=== PATIENT | male | born 2000 | race American Indian/Alaskan Native ===

== ENCOUNTER 2021-07-04 04:39 | Emergency (ER) | payer MEDICAID ==
[2021-07-04 05:42] LABS: Bilirubin,Urine NEG (Negative); Blood,Urine NEG (Negative); Color,Urine Yellow (Yellow); Mucus,Urine FEW /HPF; Protein,Urine <15 mg/dL mg/dL (Negative)
[2021-07-04] MEDS ORDERED: LIDOCAINE-MPF (1%) 10 MG/1 ML VIAL 5 ML INFILTRATI ONE (07:48)
[2021-07-04] MEDS ORDERED: AZITHROMYCIN 250 MG TAB PO ONE (07:48)
--- NOTE | 2021-07-04 07:51 | Emergency Department Report ---
ED Male HPI - General Chief complaint: Urogenital-Male Stated complaint: SORE THROAT/PAINFUL URINATION Time Seen by Provider: 07/04/21 07:19 Source: patient Mode of arrival: Ambulatory Limitations: No Limitations - History of Present Illness Initial comments: 21 year old black male with no pmh presents to ed for evaluation of 2 week history of dysuria and penile discharge He states that he recently added another partner and does not use protection at all. He denies fever and abdominal pain. MD Complaint: penile discharge, dysuria -: Gradual, week(s) (2) Location: penis Radiation: none new sexual partner discharge, dysuria. denies: swelling, mass, urinary retention, blood in urine, fever, nausea/vomiting - Related Data Sexually active: Yes Allergies Allergy/AdvReac Type Severity Reaction Status Date / Time No Known Allergies Allergy Verified 07/04/21 05:10 ED Review of Systems ROS: Stated complaint: SORE THROAT/PAINFUL URINATION Other details as noted in HPI Comment: All other systems reviewed and negative Constitutional: denies: chills, fever Respiratory: denies: shortness of breath Cardiovascular: denies: chest pain, palpitations, dyspnea on exertion Gastrointestinal: denies: abdominal pain, nausea, vomiting, diarrhea, hematemesis, melena, hematochezia Genitourinary: dysuria, discharge. denies: urgency, frequency, hematuria, testicular pain Musculoskeletal: denies: back pain ED Physical Exam - General Limitations: No Limitations General appearance: alert, in no apparent distress - Head Head exam: Present: atraumatic, normocephalic - Eye Eye exam: Present: normal appearance. Absent: conjunctival injection - Neck Neck exam: Present: normal inspection - Respiratory Respiratory exam: Absent: respiratory distress - Cardiovascular Cardiovascular Exam: Present: bradycardia - GI/Abdominal GI/Abdominal exam: Absent: distended - Rectal Rectal exam: Present: deferred - Extremities Exam Extremities exam: Present: normal inspection - Back Exam Back exam: Present: normal inspection. Absent: CVA tenderness (R), CVA tenderness (L) - Neurological Exam Neurological exam: Present: alert, oriented X3, normal gait - Skin Skin exam: Present: warm, dry, intact, normal color ED Course Vital Signs 07/04/21 07/04/21 05:06 08:43 Temperature 98.8 F 98.0 F Pulse Rate 56 L 60 Respiratory 18 Rate Blood Pressure 152/90 Blood Pressure 158/71 [Right] O2 Sat by Pulse 100 100 Oximetry ED Medical Decision Making - Medical Decision Making 21 year old black male with no pmh presents to ed for evaluation of 2 week history of dysuria and penile discharge He states that he recently added another partner and does not use protection at all. He denies fever and abdominal pain. Patient will be treated empirically for gc/chlamydia wiht rocephin 500mg IM and zithromycin 1 gram po (he refused 7 day coarse of doxycycline stating that he cannot remember to take prescriptions). He is advised to notify his partners so that they can be tested and treated. He is advised to practice safe sex and follow up with pcp for further evaluation as needed. Critical care attestation.: If time is entered above; I have spent that time in minutes in the direct care of this critically ill patient, excluding procedure time. ED Disposition Clinical Impression: Urethritis, Penile discharge Disposition: 01 HOME / SELF CARE / HOMELESS Is pt being admited?: No Does the pt Need Aspirin: No Condition: Stable Instructions: Urethritis, Adult, Safe Sex Additional Instructions: Practice safe sex. Follow-up with primary care provider for further evaluation and management. Return to the ED as needed. Referrals: YOSEF BECERRA MD [Primary Care Provider] - 3-5 Days Forms: STI Treatment and Prevention Time of Disposition: 07:51
[2021-07-04 08:48] VITALS: BP 158/71
== END 2021-07-04 08:46 | disposition home or self-care (01) ==
LOC: ED 04:39
DX: N34.2 Other urethritis (principal); R36.9 Urethral discharge, unspecified
CPT/HCPCS: 81001; 87086; 96372; 99283; J0696; J3490